=== PATIENT | male | born 1990 | race Caucasian/White ===

== ENCOUNTER 2017-01-13 02:26 | Emergency (ER) | payer MEDICAID ==
[~2017-01-13 02:26] MED LIST: LEXAPRO20 MG; RISPERDAL1 MG; STRATTERA80 MG
[2017-01-13] MEDS ORDERED: NO HOME MEDICATION XX (02:44)
== END 2017-01-13 03:40 | disposition other institution (70) ==
LOC: EDMED 02:26
DX: F20.9 Schizophrenia, unspecified (principal); F17.210 Nicotine dependence, cigarettes, uncomplicated; Z79.899 Other long term (current) drug therapy